=== PATIENT | female | born 2005 | race Caucasian/White ===

== ENCOUNTER 2024-01-08 10:35 | Emergency (ER) | payer SELFPAY | END 2024-01-08 13:20 | disposition home or self-care (01) | LOC: JD.ED 10:35 | DX: Z32.01 Encounter for pregnancy test, result positive (principal); Z3A.00 Weeks of gestation of pregnancy not specified | CPT/HCPCS: 36415; 84702; 99284 ==

== ENCOUNTER 2024-08-31 07:35 | Inpatient (IN) | payer MEDICAID ==
[2024-08-31] MEDS ORDERED: Lidocaine 1% 50 ML MDV INJECT PRN (08:07)
[2024-08-31] MEDS ORDERED: Nalbuphine 10 MG/1 ML Vial IVPUSH PRN (08:07)
[2024-08-31] MEDS ORDERED: Calcium Carbonate 500 MG Tab.Chew PO PRN (08:07)
[2024-08-31] MEDS ORDERED: Ondansetron 4 MG/2 ML SDV IVPUSH PRN (08:07)
[2024-08-31] MEDS ORDERED: Acetaminophen 325 MG Tab PO PRN (08:07)
[2024-08-31] MEDS ORDERED: Oxytocin/0.9 % Sodium Chloride 30 UNIT/500 ML BAG IV SCH (08:15)
[2024-08-31] MEDS: Oxytocin/0.9 % Sodium Chloride 30 UNIT/500 ML BAG IV SCH (08:29)
[2024-08-31] MEDS: Lactated Ringers 1,000 ML IV SCH (08:29)
[2024-08-31 08:42] LABS: BASOPHILS PERCENT AUTO 0.3 % (0.0-1.0); EOSINOPHILS ABSOLUTE AUTO 0.1 K/mm3 (0.0-0.4); EOSINOPHILS PERCENT AUTO 0.5 % (0.0-6.0); HEMATOCRIT 34.5 % (37.0-47.0); HEMOGLOBIN 12.2 gm/dl (12.0-16.0); IMMATURE GRAN ABSOLUTE AUTO 0.07 K/mm3 (0.00-0.05); IMMATURE GRAN PERCENT AUTO 0.7 % (0.0-0.4); LYMPHOCYTES ABSOLUTE AUTO 1.8 K/mm3 (1.0-4.8); LYMPHOCYTES PERCENT AUTO 17.7 % (24.0-44.0); MEAN CORPUSCULAR HEMOGLOBIN 32.5 pg (28.0-32.0); MEAN CORPUSCULAR HGB CONC 35.4 g/dl (32.0-36.0); MEAN PLATELET VOLUME 12.2 fl (9.4-12.3); MONOCYTES ABSOLUTE AUTO 0.6 K/mm3 (0.0-0.8); MONOCYTES PERCENT AUTO 5.5 % (0.0-8.0); NEUTROPHILS ABSOLUTE AUTO 7.7 K/mm3 (1.8-7.7); NEUTROPHILS PERCENT AUTO 75.3 % (41.0-71.0); PLATELET COUNT,PLT 136 K/mm3 (150-400); RED BLOOD CELL COUNT 3.75 M/mm3 (4.10-5.30); WHITE BLOOD CELL COUNT,WBC 10.27 K/mm3 (3.9-11.3)
[2024-08-31] MEDS ORDERED: diphenhydrAMINE 50 MG/ML SDV IVPUSH PRN (12:18)
[2024-08-31] MEDS ORDERED: ePHEDrine 50 MG/ML SDV IVPUSH PRN (12:18)
[2024-08-31] MEDS: Bupivacaine/fentaNYL/NS 100 ML Bag EPIDUR PRN (12:26)
[2024-08-31] MEDS: Acetaminophen 325 MG Tab PO SCH (19:27)
[2024-08-31] MEDS: Benzocaine/Menthol 20%-0.5% Spray 78 GM Cannister TOP PRN (19:28)
[2024-08-31] MEDS: Witch Hazel Medicated Pads 40/Jar TOP PRN (19:28)
[2024-09-01] MEDS: Acetaminophen 325 MG Tab PO SCH (09:14)
[2024-09-02] MEDS: Ibuprofen 600 MG Tab PO PRN (02:25)
== END 2024-09-02 23:55 | disposition home or self-care (01) | DRG 807 ==
LOC: JD.OBCHECK 07:35 → JD.OB 07:42 → JD.OBCHECK 08:07 → JD.OB 08:07 → OBSVTOIN 16:41 → JD.OB 16:42
PROVIDERS: ADMIT Obstetrics & Gynecology; ATTEND Obstetrics & Gynecology
PROC: 10E0XZZ Delivery of Products of Conception, External Approach (ICD-10-PCS; principal; 2024-08-31)
PROC: 0KQM0ZZ Repair Perineum Muscle, Open Approach (ICD-10-PCS; 2024-08-31)
PROC: 3E033VJ Introduction of Other Hormone into Peripheral Vein, Percutaneous Approach (ICD-10-PCS; 2024-08-31)
PROC: 3E0R3BZ Introduction of Anesthetic Agent into Spinal Canal, Percutaneous Approach (ICD-10-PCS; 2024-08-31)
PROC: 00HU33Z Insertion of Infusion Device into Spinal Canal, Percutaneous Approach (ICD-10-PCS; 2024-08-31)
DX: O42.02 Full-term premature rupture of membranes, onset of labor within 24 hours of rupture (principal); Z37.0 Single live birth; O70.1 Second degree perineal laceration during delivery; Z3A.39 39 weeks gestation of pregnancy
CPT/HCPCS: 36415; 51701; 59025; 59409; 85025; 86592; 86850; 86900; 86901; A9270-GY; C1758; J3490; J7120; J7999